=== PATIENT | female | born 1950 | race Caucasian/White ===

== ENCOUNTER 2018-06-17 16:46 | Emergency (ER) | payer OTHER, MEDICAID ==
[~2018-06-17] VITALS: Ht 154.9 cm; Wt 56.0 kg
[2018-06-17] MEDS ORDERED: SODIUM CHLORIDE 0.9% 1,000 ML IV ONE (17:34)
[2018-06-17] MEDS ORDERED: ONDANSETRON HCL 4MG/2ML INJ IV ONE (17:45)
[2018-06-17] MEDS ORDERED: FAMOTIDINE 20MG/2ML VIAL IV ONE (17:45)
[2018-06-17] MEDS ORDERED: METHYLPREDNISOLONE SOD SUCC 125 MG/2 ML VIAL IV ONE (17:45)
[2018-06-17 19:46] VITALS: BP 112/74
== END 2018-06-17 20:15 | disposition home or self-care (01) ==
LOC: ER 16:46
DX: T78.1XXA Other adverse food reactions, not elsewhere classified, initial encounter (principal); X58.XXXA Exposure to other specified factors, initial encounter
CPT/HCPCS: 96361; 96374; 96375; 99283; J2405; J2930; J3490; J7030

== ENCOUNTER 2019-01-25 14:25 | Emergency (ER) | payer OTHER ==
[~2019-01-25] VITALS: Ht 160 cm; Wt 82.0 kg
[2019-01-25] MEDS ORDERED: EPINEPHRINE 1:1000 1 MG/ML AMP INJ ONE (15:15)
[2019-01-25] MEDS ORDERED: METHYLPREDNISOLONE SOD SUCC 125 MG/2 ML VIAL IV ONE (15:15)
[2019-01-25] MEDS ORDERED: DIPHENHYDRAMINE 50MG/ML VIAL IV ONE (15:15)
[2019-01-25 17:37] VITALS: BP 95/61
== END 2019-01-25 18:04 | disposition home or self-care (01) ==
LOC: ER 14:25
DX: T78.2XXA Anaphylactic shock, unspecified, initial encounter (principal); L27.2 Dermatitis due to ingested food; X58.XXXA Exposure to other specified factors, initial encounter; I48.91 Unspecified atrial fibrillation; E78.00 Pure hypercholesterolemia, unspecified; Z91.018 Allergy to other foods
CPT/HCPCS: 93005; 96374; 96375; 99283; J1200; J2930; J3490

== ENCOUNTER 2022-07-12 02:52 | Emergency (ER) | payer OTHER, MEDICAID ==
[~2022-07-12] VITALS: Ht 157.5 cm; Wt 76.0 kg
[2022-07-12 08:56] LABS: BASOPHILS % 0.4 % (0.0-2.0); HEMATOCRIT. 39.4 % (36.0-48.0); HEMOGLOBIN. 13.4 g/dL (12.0-16.0); LYMPHOCYTES % 20.6 % (20.0-50.0); MEAN CORPUSCULAR HEMOGLOBIN 31.4 pg (28.0-32.0); MEAN CORPUSCULAR VOLUME 92.2 fL (81.0-99.0); MEAN PLATELET VOLUME 9.4 fl (7.4-10.4); MONOCYTES % 13.3 % (2.0-8.0); NEUTROPHILS % 64.7 % (40.0-76.0); PLATELET 269 x1000/uL (130-400); RED BLOOD CELL COUNT 4.28 mill/uL (4.2-5.4); RED CELL DISTRIBUTION WIDTH 13.3 % (11.6-14.6)
[2022-07-12 09:05] LABS: CHLORIDE 102 mEq/L (98-107)
[2022-07-12] MEDS ORDERED: GABA300C MT (10:25)
[2022-07-12] MEDS ORDERED: IBUP-2029 MT (10:25)
[2022-07-12 11:30] VITALS: BP 174/108
== END 2022-07-12 12:08 | disposition home or self-care (01) ==
LOC: ER 02:52
DX: M47.9 Spondylosis, unspecified (principal); E78.00 Pure hypercholesterolemia, unspecified; I10 Essential (primary) hypertension; Z91.018 Allergy to other foods
CPT/HCPCS: 36415; 80053; 84484; 85025; 93005; 99285